=== PATIENT | female | born 1955 | race African-American/Black ===

== ENCOUNTER 2020-06-06 15:05 | Inpatient (IN) | payer OTHER ==
[~2020-06-06] VITALS: Ht 165.1 cm; Wt 52.2 kg
[2020-06-06] MEDS ORDERED: MORPHINE SULFATE 4 MG/ML CPJ (NOT FOR IM USE) IV STA (17:45)
[2020-06-06] MEDS ORDERED: ONDANSETRON HCL 4MG/2ML INJ IV STA (17:45)
[2020-06-06 18:54] LABS: CHLORIDE 102 mEq/L (98-107)
[2020-06-06 18:55] LABS: BASOPHILS % 0.1 % (0.0-2.0); CLARITY URINE CLEAR (CLEAR); COLOR URINE DARK YELLOW (YELLOW); HEMATOCRIT. 47.4 % (36.0-48.0); HEMOGLOBIN. 15.8 g/dL (12.0-16.0); KETONES URINE 1+ (NEGATIVE); LEUKOCYTE ESTERASE URINE 1+ (NEGATIVE); LYMPHOCYTES % 10.8 % (20.0-50.0); MEAN CORPUSCULAR HEMOGLOBIN 28.5 pg (28.0-32.0); MEAN CORPUSCULAR VOLUME 85.8 fL (81.0-99.0); MEAN PLATELET VOLUME 9.2 fl (7.4-10.4); MONOCYTES % 2.6 % (2.0-8.0); NEUTROPHILS % 86.5 % (40.0-76.0); NITRITE URINE NEGATIVE (NEGATIVE); OCCULT BLOOD URINE NEGATIVE (NEGATIVE); PLATELET 155 x1000/uL (130-400); PROTEIN URINE 1+ (NEGATIVE); RED BLOOD CELL COUNT 5.53 mill/uL (4.2-5.4); RED CELL DISTRIBUTION WIDTH 13.2 % (11.6-14.6)
[2020-06-06 18:56] LABS: INR 1.1; PROTHROMBIN TIME 11.7 sec (9.6-11.0)
[2020-06-06] MEDS ORDERED: MORPHINE SULFATE 4 MG/ML CPJ (NOT FOR IM USE) IV ONE (19:15)
[2020-06-06] MEDS ORDERED: CEFTRIAXONE 1 G PREMIX 50 ML IV ONE ×2 (19:45→23:45)
[2020-06-06 22:45] VITALS: BP 119/60
[2020-06-06] MEDS ORDERED: IOHEXOL-300 100 ML BOTTLE ONE (23:38)
[2020-06-06] MEDS ORDERED: ACETAMINOPHEN 650MG/20.3ML UDC PO PRN (23:45)
[2020-06-06] MEDS ORDERED: MORPHINE SULFATE 2 MG/ML CPJ (NOT FOR IM USE) IV PRN (23:45)
[2020-06-06] MEDS ORDERED: ONDANSETRON HCL 4MG/2ML INJ IV PRN (23:45)
[2020-06-06] MEDS ORDERED: ATOR40TA70 PO (23:55)
[2020-06-06] MEDS ORDERED: HYDR25TA PO (23:55)
[2020-06-06] MEDS ORDERED: AMLO10TA80 PO (23:55)
[2020-06-07 00:14] VITALS: BP 119/60
[2020-06-07] MEDS ORDERED: ACETAMINOPHEN 325MG TABLET PO NR (00:15)
[2020-06-07] MEDS ORDERED: ACETAMINOPHEN 650MG/20.3ML UDC PO PRN (00:30)
[2020-06-07 04:00] VITALS: BP 112/66
[2020-06-07] MEDS: ACETAMINOPHEN 325MG TABLET PO PRN ×2 (05:44→20:36)
[2020-06-07 06:14] LABS: HEMATOCRIT. 41.3 % (36.0-48.0); HEMOGLOBIN. 13.9 g/dL (12.0-16.0); MEAN CORPUSCULAR HEMOGLOBIN 28.6 pg (28.0-32.0); MEAN CORPUSCULAR VOLUME 85.5 fL (81.0-99.0); MEAN PLATELET VOLUME 9.4 fl (7.4-10.4); PLATELET 127 x1000/uL (130-400); RED BLOOD CELL COUNT 4.84 mill/uL (4.2-5.4)
[2020-06-07 08:00] VITALS: BP 111/62
[2020-06-07] MEDS: ENOXAPARIN 40MG/0.4ML SYR SUBCUT SCH (09:27)
[2020-06-07] MEDS: AMLODIPINE 10MG TABLET PO SCH (09:27)
[2020-06-07] MEDS: FAMOTIDINE 20MG TABLET PO SCH ×2 (09:27→20:36)
[2020-06-07] MEDS ORDERED: INFLUENZA VACCINE 05/PF 0.5 ML VIAL IM ONE (10:00)
[2020-06-07 11:36] LABS: PLATELET ESTIMATE SLIGHTLY DECREASED
[2020-06-07 12:00] VITALS: BP 111/68
[2020-06-07 16:00] VITALS: BP 118/71
[2020-06-07] MEDS: METRONIDAZOLE 500 MG PREMIX 100 ML IV SCH ×2 (17:31→20:29)
[2020-06-07 20:00] VITALS: BP 109/63
[2020-06-07] MEDS ORDERED: ATORVASTATIN CALCIUM 40MG TABLET PO SCH (21:00)
[2020-06-07] MEDS: CEFTRIAXONE 1,000 MG in DEXTROSE 5% WATER 50 ML IV SCH (21:45)
[2020-06-08] VITALS: BP 111/65
[2020-06-08] MEDS: METRONIDAZOLE 500 MG PREMIX 100 ML IV SCH ×3 (03:07→20:11)
[2020-06-08 04:00] VITALS: BP 133/62
[2020-06-08 07:18] LABS: BASOPHILS % 0.2 % (0.0-2.0); EOSINOPHILS % 0.1 % (0.0-5.0); HEMATOCRIT. 41.1 % (36.0-48.0); HEMOGLOBIN. 13.9 g/dL (12.0-16.0); LYMPHOCYTES % 22.9 % (20.0-50.0); MEAN CORPUSCULAR HEMOGLOBIN 28.8 pg (28.0-32.0); MEAN CORPUSCULAR VOLUME 85.2 fL (81.0-99.0); MEAN PLATELET VOLUME 9.2 fl (7.4-10.4); MONOCYTES % 8.1 % (2.0-8.0); NEUTROPHILS % 68.7 % (40.0-76.0); PLATELET 113 x1000/uL (130-400); RED BLOOD CELL COUNT 4.83 mill/uL (4.2-5.4); RED CELL DISTRIBUTION WIDTH 13.3 % (11.6-14.6)
[2020-06-08 07:47] LABS: CHLORIDE 101 mEq/L (98-107)
[2020-06-08 08:00] VITALS: BP 127/81
[2020-06-08] MEDS: FAMOTIDINE 20MG TABLET PO SCH ×2 (08:12→20:22)
[2020-06-08] MEDS: ENOXAPARIN 40MG/0.4ML SYR SUBCUT SCH (08:12)
[2020-06-08] MEDS: AMLODIPINE 10MG TABLET PO SCH (08:13)
[2020-06-08 12:00] VITALS: BP 118/67
[2020-06-08 20:00] VITALS: BP 148/73
[2020-06-08] MEDS ORDERED: POTASSIUM CHLORIDE INJ 40 MEQ in DEXT 5% WATER 250 ML IV ONE (21:00)
[2020-06-08] MEDS: CEFTRIAXONE 1,000 MG in DEXTROSE 5% WATER 50 ML IV SCH (21:00)
[2020-06-09] VITALS: BP 157/77
[2020-06-09 04:00] VITALS: BP 158/89
[2020-06-09] MEDS: METRONIDAZOLE 500 MG PREMIX 100 ML IV SCH ×2 (05:44→12:00)
[2020-06-09 06:31] LABS: BASOPHILS % 0.4 % (0.0-2.0); EOSINOPHILS % 0.3 % (0.0-5.0); HEMATOCRIT. 41.4 % (36.0-48.0); LYMPHOCYTES % 48.4 % (20.0-50.0); MEAN CORPUSCULAR HEMOGLOBIN 28.8 pg (28.0-32.0); MEAN CORPUSCULAR VOLUME 85.2 fL (81.0-99.0); MEAN PLATELET VOLUME 9.3 fl (7.4-10.4); MONOCYTES % 11.3 % (2.0-8.0); NEUTROPHILS % 39.6 % (40.0-76.0); PLATELET 121 x1000/uL (130-400); RED BLOOD CELL COUNT 4.86 mill/uL (4.2-5.4); RED CELL DISTRIBUTION WIDTH 13.5 % (11.6-14.6)
[2020-06-09 06:55] LABS: CHLORIDE 103 mEq/L (98-107)
[2020-06-09] MEDS ORDERED: LEVO500T2 MT (09:17)
[2020-06-09 11:10] VITALS: BP 161/76
[2020-06-09 11:29] VITALS: BP 161/76
[2020-06-09] MEDS: AMLODIPINE 10MG TABLET PO SCH (12:30)
[2020-06-09] MEDS: FAMOTIDINE 20MG TABLET PO SCH (12:30)
[2020-06-09] MEDS: ENOXAPARIN 40MG/0.4ML SYR SUBCUT SCH (12:31)
== END 2020-06-09 12:45 | disposition home or self-care (01) | DRG 720 ==
LOC: ER 15:05 → 6WST 20:07 → ENRESERV 20:45 → 6WST 06-08 21:58
PROVIDERS: ADMIT Internal Medicine; ATTEND Internal Medicine
DX: A41.9 Sepsis, unspecified organism (principal); K80.10 Calculus of gallbladder with chronic cholecystitis without obstruction; K82.8 Other specified diseases of gallbladder; I10 Essential (primary) hypertension; Z20.828 Contact with and (suspected) exposure to other viral communicable diseases; R16.0 Hepatomegaly, not elsewhere classified; R74.01 Elevation of levels of liver transaminase levels; N12 Tubulo-interstitial nephritis, not specified as acute or chronic
CPT/HCPCS: 36415; 71045; 74177; 74181; 76700; 76705; 78227; 80048; 80053; 80076; 81003; 82248; 84145; 85025; 87426; 90686; 93005; 99285; J0696; J1650; J2270; J2405; J3480; J3490; J7040; J7060; Q9967